=== PATIENT | female | born 1995 | race Caucasian/White ===

== ENCOUNTER 2021-01-24 15:10 | Emergency (ER) | payer SELFPAY ==
[~2021-01-24] VITALS: Ht 154.9 cm; Wt 50.0 kg
[2021-01-24 15:20] VITALS: BP 90/47
[2021-01-24 17:28] LABS: BASOPHILS % 0.7 % (0.0-2.0); EOSINOPHILS % 2.7 % (0.0-5.0); HEMATOCRIT. 41.6 % (36.0-48.0); HEMOGLOBIN. 13.7 g/dL (12.0-16.0); LYMPHOCYTES % 31.9 % (20.0-50.0); MEAN CORPUSCULAR VOLUME 93.9 fL (81.0-99.0); MEAN PLATELET VOLUME 8.5 fl (7.4-10.4); MONOCYTES % 7.4 % (2.0-8.0); NEUTROPHILS % 57.3 % (40.0-76.0); PLATELET 249 x1000/uL (130-400); RED BLOOD CELL COUNT 4.43 mill/uL (4.2-5.4); RED CELL DISTRIBUTION WIDTH 13.2 % (11.6-14.6)
[2021-01-24 17:31] LABS: CHLORIDE 110 mEq/L (98-107)
[2021-01-24 17:45] LABS: B-HCG QUANTITATIVE < 1 mIU/mL (<3)
[2021-01-24] MEDS ORDERED: IBUPROFEN 600MG TABLET PO ONE (19:45)
[2021-01-24 20:32] LABS: CLARITY URINE TURBID (CLEAR); COLOR URINE YELLOW (YELLOW); KETONES URINE NEGATIVE (NEGATIVE); LEUKOCYTE ESTERASE URINE 1+ (NEGATIVE); NITRITE URINE POSITIVE (NEGATIVE); OCCULT BLOOD URINE 2+ (NEGATIVE); PROTEIN URINE 1+ (NEGATIVE); SPECIFIC GRAVITY URINE 1.029 (1.005-1.030)
[2021-01-24] MEDS ORDERED: IBUP-2029 MT (20:38)
[2021-01-24] MEDS ORDERED: CEPH500T MT (20:38)
== END 2021-01-24 20:46 | disposition home or self-care (01) ==
LOC: ER 15:10
DX: N30.90 Cystitis, unspecified without hematuria (principal); N93.8 Other specified abnormal uterine and vaginal bleeding; N83.202 Unspecified ovarian cyst, left side
CPT/HCPCS: 36415; 76830; 76856; 80053; 81003; 81025; 84702; 85025; 86850; 86900; 99284